=== PATIENT | female | born 1985 | race Hispanic/Latino ===

== ENCOUNTER 2017-11-16 02:03 | Emergency (ER) | payer OTHER ==
[~2017-11-16] VITALS: Ht 154.9 cm; Wt 131.5 kg
[2017-11-16] MEDS ORDERED: WELLBUTRIN XL300 MG PO (02:17)
[2017-11-16] MEDS ORDERED: LITHIUM CARBON600 MG PO (02:17)
== END 2017-11-16 04:02 | disposition home or self-care (01) ==
LOC: ED 02:03
DX: R51 Headache (principal); F17.200 Nicotine dependence, unspecified, uncomplicated; Z79.899 Other long term (current) drug therapy
CPT/HCPCS: 96374; 96375; 99282; J1200; J1885; J2405; J2765; J7030

== ENCOUNTER 2017-12-14 12:05 | Emergency (ER) | payer OTHER ==
[~2017-12-14] VITALS: Ht 154.9 cm; Wt 131.5 kg
[~2017-12-14 12:05] MED LIST: LITHIUM CARBON600 MG PO; WELLBUTRIN XL300 MG PO
== END 2017-12-14 12:26 | disposition home or self-care (01) ==
LOC: ED 12:05
DX: R51 Headache (principal); M79.1 Myalgia

== ENCOUNTER 2017-12-26 17:38 | Emergency (ER) | payer OTHER ==
[~2017-12-26] VITALS: Ht 154.9 cm; Wt 151.1 kg
[2017-12-26] MEDS ORDERED: IBU800 MG PO (18:03)
== END 2017-12-26 18:06 | disposition home or self-care (01) ==
LOC: ED 17:38
DX: K08.89 Other specified disorders of teeth and supporting structures (principal)

== ENCOUNTER 2024-04-05 12:10 | Emergency (ER) | payer OTHER ==
[~2024-04-05] VITALS: Ht 154.9 cm; Wt 153.7 kg
[~2024-04-05 12:10] MED LIST changes: +IBU800 MG PO
[2024-04-05] MEDS ORDERED: FERROUS SULFAT325 M1 PO (12:20)
[2024-04-05] MEDS ORDERED: LEXAPRO10 MG PO (12:21)
[2024-04-05] MEDS ORDERED: LASIX80 MG PO (12:21)
[2024-04-05] MEDS ORDERED: SUBOXONE 8 MG-1 EAC1 SL (12:22)
[2024-04-05] MEDS ORDERED: LISINOPRIL5 MG PO (12:22)
[2024-04-05 13:11] LABS: BASOPHILS 0.6 % (0-2); HEMATOCRIT 29.2 % (35.0-50.0); HEMOGLOBIN 9.9 g/dL (12.0-18.0); LYMPHOCYTES 28.7 % (24-44); MCH 26.8 (27-36); MCHC 33.8 g/dl (30-36); MCV 79.2 fl (81-99); MONOCYTES 9.1 % (0-12); NEUTROPHILS 57.6 % (39-80); PLATELET COUNT 305 K/uL (140-440); RBC 3.69 M/ul (4.3-5.7); RDW 14.1 (10.5-15.0)
[2024-04-05 13:20] LABS: ALBUMIN 2.9 g/dL (3.4-5.0); ALBUMIN/GLOBULIN RATIO 0.81 (1.1-2.4); ANION GAP 10.4 (7-21); BILIRUBIN, TOTAL 0.4 ng/dL (0.2-1.0); BUN/CREATININE RATIO 13.75 (6.0-28.6); CALCIUM 8.4 mg/dL (8.5-10.1); CREATININE, SERUM 0.8 mg/dL (0.55-1.02); POTASSIUM 3.4 mmol/L (3.5-5.1); PROTEIN, TOTAL 6.5 g/dL (6.4-8.2)
[2024-04-05 15:00] VITALS: BP 110/62
== END 2024-04-05 15:00 | disposition other institution, planned readmission (95) ==
LOC: ED 12:10
PROVIDERS: Emergency Medicine
DX: K59.00 Constipation, unspecified (principal); Z79.899 Other long term (current) drug therapy; F17.200 Nicotine dependence, unspecified, uncomplicated
CPT/HCPCS: 36415; 74022; 80053; 84703; 85025; 99284-25

== ENCOUNTER 2024-04-11 07:53 | Emergency (ER) | payer OTHER ==
[~2024-04-11] VITALS: Ht 154.9 cm; Wt 164.0 kg
[~2024-04-11 07:53] MED LIST changes: +FERROUS SULFAT325 M1 PO; +LASIX80 MG PO; +LEXAPRO10 MG PO; +LISINOPRIL5 MG PO; +SUBOXONE 8 MG-1 EAC1 SL
--- OUTSIDE RECORDS SUMMARY | 2024-04-11 07:57 | XMS ---
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 E.Elvin. VISIT COUNT (12 MO.) 2 GERALDO Cha 1 [facility] 1 [facility] [place] 1 [facility] (Leelee Mckoy) TOTAL 5 NOTE: Visits indicate total known visits. 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 [place] TYPE: Emergency DIAGNOSES: - Cellulitis of right lower limb - Other specified soft tissue disorders - Leg Swelling - Shortness of Breath - Swollen legs, shortness of breath 10/17/2023 16:32 [facility] [place] TYPE: Emergency DIAGNOSES: - Localized edema - SHORTNESS OF BREATH LEG SWELLING INPATIENT VISIT TRACKING (12 MO.) No inpatient visits to display in this time frame [email or web address]
[2024-04-11] MEDS ORDERED: MAGNESIUM CITRATE 300 ML BTL PO ONE (10:00)
[2024-04-11 10:54] VITALS: BP 106/54
== END 2024-04-11 10:54 | disposition other institution, planned readmission (95) ==
LOC: ED 07:53
DX: K59.00 Constipation, unspecified (principal); E66.9 Obesity, unspecified; I50.9 Heart failure, unspecified; F17.200 Nicotine dependence, unspecified, uncomplicated; Z79.899 Other long term (current) drug therapy; Z90.49 Acquired absence of other specified parts of digestive tract
CPT/HCPCS: 36415; 74022; 84703; 99284